=== PATIENT | female | born 2005 | race Caucasian/White ===

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

== ENCOUNTER 2025-01-21 16:04 | Emergency (ER) | payer OTHER ==
[2025-01-21 17:05] LABS: Bacteria/HPF None Seen HPF (None Seen); CAUTI Indications for Culture Pregnancy; Glucose, Urine (Dipstick) Normal (Negative); Leukocyte Negative Leu/uL (Negative); Protein, Urine (Dipstick) 10 mg/dL (Neg-Trace); RBC/HPF 0-3 HPF (0-3); Specific Gravity, Urine 1.025 (1.002-1.036); WBC/HPF 0-3 HPF (0-3)
[2025-01-21 17:06] LABS: Urine Culture Reflex Yes Yes
[2025-01-21] MEDS ORDERED: Ondansetron PF 4 MG/2 ML Vial ONE (18:39)
[2025-01-21 19:06] LABS: #Basophils 0.04 10x3/uL (0.0-0.2); #Eosinophils Less than 0.03 10x3/uL (0.0-0.7); #Monocytes 0.41 10x3/uL (0.11-0.59); #Neutrophils 8.08 10x3/uL (1.40-6.50); %Basophils 0.4 % (0.0-1.0); %Eosinophils 0.2 % (0.0-10.0); %Lymphocytes 16.9 % (28.0-48.0); %Monocytes 4.0 % (0.0-4.0); %Neutrophils 78.2 % (31.0-61.0); Hematocrit 40.7 % (36.0-47.0); Hemoglobin 14.2 g/dL (12.0-16.0); Mean Corpuscular Hemoglobin 30.0 pg (25.0-35.0); Mean Corpuscular Volume 85.9 fL (78.0-98.0); Platelet Count 323 10x3/uL (130-400); Red Blood Cell (RBC) Count 4.74 mill/uL (4.00-5.20); White Blood Cell (WBC) Count 10.32 10x3/uL (4.8-10.8)
[2025-01-21 19:25] LABS: ALT (SGPT) 11 U/L (Less than 34); AST (SGOT) 19 U/L (11-34); Albumin 4.6 g/dL (3.1-4.5); Alkaline Phosphatase 53 U/L (40-100); Anion Gap 9 mmol/L (10-20); BUN (Urea Nitrogen) 8 mg/dL (8.4-21.0); Bilirubin, Total 0.8 mg/dL (0.3-1.2); Calc. Creatinine Clearance 0 mL/min (70-130); Calcium 9.5 mg/dL (7.8-10.44); Carbon Dioxide 22 mmol/L (22-29); Chloride 106 mmol/L (98-107); Globulin 2.5 g/dL (2.4-3.5); Glucose 84 mg/dL (70-105); Lipase 20 U/L (8-78); Potassium 4.1 mmol/L (3.5-5.1); Sodium 133 mmol/L (136-145)
== END 2025-01-21 19:52 | disposition home or self-care (01) ==
LOC: ERS 16:04
DX: O99.611 Diseases of the digestive system complicating pregnancy, first trimester (principal); K29.70 Gastritis, unspecified, without bleeding; O21.9 Vomiting of pregnancy, unspecified; O99.331 Smoking (tobacco) complicating pregnancy, first trimester; F12.90 Cannabis use, unspecified, uncomplicated; Z3A.09 9 weeks gestation of pregnancy
CPT/HCPCS: 80053; 81001; 83690; 85025; 87086; 96361; 96374; J2405

== ENCOUNTER 2025-02-11 04:54 | Emergency (ER) | payer OTHER ==
[2025-02-11 05:21] LABS: #Basophils 0.05 10x3/uL (0.0-0.2); #Eosinophils 0.08 10x3/uL (0.0-0.7); #Monocytes 0.54 10x3/uL (0.11-0.59); #Neutrophils 5.53 10x3/uL (1.40-6.50); %Basophils 0.6 % (0.0-1.0); %Eosinophils 0.9 % (0.0-10.0); %Lymphocytes 29.4 % (28.0-48.0); %Monocytes 6.1 % (0.0-4.0); %Neutrophils 62.8 % (31.0-61.0); Hematocrit 36.4 % (36.0-47.0); Hemoglobin 12.6 g/dL (12.0-16.0); Mean Corpuscular Hemoglobin 29.8 pg (25.0-35.0); Mean Corpuscular Volume 86.1 fL (78.0-98.0); Platelet Count 256 10x3/uL (130-400); Red Blood Cell (RBC) Count 4.23 mill/uL (4.00-5.20); White Blood Cell (WBC) Count 8.81 10x3/uL (4.8-10.8)
[2025-02-11 05:23] LABS: Bacteria/HPF None Seen HPF (None Seen); CAUTI Indications for Culture Dysuria,urgency,freq; Glucose, Urine (Dipstick) Normal (Negative); Leukocyte Negative Leu/uL (Negative); Protein, Urine (Dipstick) Negative (Neg-Trace); RBC/HPF 0-3 HPF (0-3); Specific Gravity, Urine 1.027 (1.002-1.036); WBC/HPF 0-3 HPF (0-3)
[2025-02-11 05:25] LABS: Urine Culture Reflex No No
[2025-02-11 06:02] LABS: ALT (SGPT) 9 U/L (Less than 34); AST (SGOT) 17 U/L (11-34); Albumin 4.0 g/dL (3.1-4.5); Alkaline Phosphatase 41 U/L (40-100); Anion Gap 9 mmol/L (10-20); BUN (Urea Nitrogen) 8 mg/dL (8.4-21.0); Bilirubin, Total 0.6 mg/dL (0.3-1.2); Calc. Creatinine Clearance 0 mL/min (70-130); Calcium 8.9 mg/dL (7.8-10.44); Carbon Dioxide 22 mmol/L (22-29); Chloride 109 mmol/L (98-107); Globulin 2.5 g/dL (2.4-3.5); Glucose 89 mg/dL (70-105); Potassium 4.0 mmol/L (3.5-5.1); Sodium 136 mmol/L (136-145)
== END 2025-02-11 07:06 | disposition home or self-care (01) ==
LOC: ERS 04:54
DX: O20.0 Threatened abortion (principal); O99.331 Smoking (tobacco) complicating pregnancy, first trimester; F17.290 Nicotine dependence, other tobacco product, uncomplicated; Z3A.12 12 weeks gestation of pregnancy
CPT/HCPCS: 76856; 80053; 81001; 84702; 85025; 93976